=== PATIENT | male | born 1940 | race Caucasian/White ===

== ENCOUNTER 2020-06-23 18:20 | Emergency (ER) | payer MEDICARE ==
[~2020-06-23] VITALS: Ht 172.7 cm; Wt 80.5 kg
[~2020-06-23 18:20] MED LIST: ASPI-1264 PO; CARV12.5 PO; CHOL10002 PO; CLOP75TA15 PO; FURO-149 PO; LOSA50TA64 PO; MULT-1179 PO; NITR0.4T51 SL; OMEG500C PO; OSC500T PO; POTA20LI5 PO; SIMV40TA PO
[2020-06-23 19:19] VITALS: BP 167/76
--- NOTE | 2020-06-23 22:02 | NUR ---
ELIAS [phone]. [facility]
== END 2020-06-23 22:18 | disposition home or self-care (01) ==
LOC: ER 18:20
DX: M65.28 Calcific tendinitis, other site (principal); M25.512 Pain in left shoulder; I25.10 Atherosclerotic heart disease of native coronary artery without angina pectoris; E78.00 Pure hypercholesterolemia, unspecified; I10 Essential (primary) hypertension; I25.2 Old myocardial infarction; Z95.1 Presence of aortocoronary bypass graft; Z79.82 Long term (current) use of aspirin; Z79.899 Other long term (current) drug therapy
CPT/HCPCS: 73030; 99283

== ENCOUNTER 2021-07-29 06:01 | Day surgery (SDC) | payer MEDICARE ==
[2021-07-23 11:43] LABS: BASOPHILS # (AUTO) 0.1 X10'3 (0-0.2); BASOPHILS % (AUTO) 0.7 % (0-1); EOSINOPHILS # (AUTO) 0.3 X10'3 (0-0.9); EOSINOPHILS % (AUTO) 3.5 % (0-6); HEMATOCRIT 40.7 % (42.0-52.0); HEMOGLOBIN 13.6 g/dl (14.0-17.9); LYMPHOCYTES # (AUTO) 1.6 X10'3 (1.1-4.8); MEAN CORPUSCULAR HEMOGLOBIN 29.6 PG (27.0-31.0); MEAN CORPUSCULAR HGB CONC 33.5 g/dL (33.0-36.5); MEAN CORPUSCULAR VOLUME 88.2 FL (78-98); MEAN PLATELET VOLUME 7.2 FL (7.4-10.4); MONOCYTES # (AUTO) 0.8 X10'3 (0-0.9); MONOCYTES % (AUTO) 10.6 % (2-12); NEUTROPHILS % (AUTO) 64.2 % (42-75); PLATELET COUNT 183 X10'3 (140-440); RED BLOOD COUNT 4.61 X10'6 (4.70-6.10); RED CELL DISTRIBUTION WIDTH 13.7 % (11.5-14.5); WHITE BLOOD COUNT 7.7 X10'3 (4.5-11.0)
[2021-07-23 11:50] LABS: ALBUMIN 3.5 G/DL (3.4-5.0); ANION GAP 9 (8-16); BLOOD UREA NITROGEN 23 MG/DL (7-18); BUN/CREATININE RATIO 19.8 (5.4-32.0); CHLORIDE 104 MMOL/L (99-107); CREATININE 1.16 MG/DL (0.60-1.10); GLUCOSE 91 MG/DL (70-104); POTASSIUM 4.5 MMOL/L (3.5-5.1); SODIUM 141 MMOL/L (135-145); TOTAL CARBON DIOXIDE 28.3 MMOL/L (24-32); eGFR 61 ML/MIN
[2021-07-23 11:51] LABS: APTT 28 SECONDS (22-32)
[~2021-07-29] VITALS: Ht 172.7 cm; Wt 74.0 kg
[2021-07-29] VITALS (10 sets, daily range): BP systolic 111–153; BP diastolic 46–86
[2021-07-29] MEDS ORDERED: LORazepam 0.5 MG tablet PO PRN (06:20)
[2021-07-29] MEDS ORDERED: LIDOcaine/PRILOcaine 5gm cream TP ONE (06:20)
[2021-07-29] MEDS ORDERED: diphenhydrAMINE 25mg capsule PO PRN (06:20)
[2021-07-29] MEDS ORDERED: normal saline 1,000 ML IV SCH (06:20)
[2021-07-29] MEDS ORDERED: FURO20TA4 PO (06:46)
[2021-07-29] MEDS ORDERED: POTA10CA44 PO (06:46)
[2021-07-29] MEDS ORDERED: ROSU40TA22 PO (06:46)
[2021-07-29] MEDS ORDERED: THIA250T9 (06:52)
[2021-07-29] MEDS ORDERED: CALC-801 PO (06:52)
[2021-07-29] MEDS ORDERED: LOSA100T57 PO (06:52)
[2021-07-29] MEDS ORDERED: FISH1CAP15 PO (06:52)
[2021-07-29] MEDS ORDERED: VIT1CAPS46 PO (06:52)
[2021-07-29] MEDS ORDERED: nitroGLYCERIN-Tridil 50MG/D5W 250 ML IV ONE (07:25)
[2021-07-29] MEDS ORDERED: fentaNYL/PF 50MCG/1 ML 2ML syringe ONE (07:26)
[2021-07-29] MEDS ORDERED: heparin 1,000unit/ml 10ml vial 10 ML ONE (07:26)
[2021-07-29] MEDS ORDERED: verapamil 2.5 mg/ml inj IV ONE (07:26)
[2021-07-29] MEDS ORDERED: LIDOcaine 1% (10mg/ml)w/preservative injection 20ml MDV ONE (07:26)
[2021-07-29] MEDS ORDERED: iohexol 350MG/ML 100ml bottle IV ONE ×2 (07:26→08:33)
[2021-07-29] MEDS ORDERED: iohexol 350 MG/ML 50ML vial IV ONE (07:26)
[2021-07-29] MEDS ORDERED: midazolam 1 mg/ML 2ml injection ONE (07:26)
[2021-07-29 07:43] LABS: ALANINE AMINOTRANSFERASE 28 U/L (12-78); ALBUMIN 3.8 G/DL (3.4-5.0); ALBUMIN/GLOBULIN RATIO 1.2 (1.1-1.5); ALKALINE PHOSPHATASE 72 IU/L (46-116); ANION GAP 11 (8-16); ASPARTATE AMINO TRANSFERASE 27 U/L (10-37); BILIRUBIN,TOTAL 0.4 MG/DL (0.1-1.0); BLOOD UREA NITROGEN 21 MG/DL (7-18); BUN/CREATININE RATIO 17.2 (5.4-32.0); CALCIUM 8.9 MG/DL (8.5-10.1); CHLORIDE 103 MMOL/L (99-107); CREATININE 1.22 MG/DL (0.60-1.10); GLUCOSE 113 MG/DL (70-104); POTASSIUM 4.7 MMOL/L (3.5-5.1); SODIUM 140 MMOL/L (135-145); TOTAL CARBON DIOXIDE 25.8 MMOL/L (24-32); TOTAL PROTEIN 7.1 G/DL (6.4-8.2); eGFR 57 ML/MIN
[2021-07-29] MEDS ORDERED: acetylcysteine 200 MG/ml 4ml vial PO PRN (09:18)
[2021-07-29] MEDS ORDERED: sodium bicarbonate (8.4%) inj. 150 ML in dextrose 5%-water 1,000 ML IV ONE (09:20)
== END 2021-07-29 13:55 | disposition home or self-care (01) ==
LOC: SSTAY O 06:01
PROVIDERS: ATTEND Internal Medicine Cardiovascular Disease
DX: R94.39 Abnormal result of other cardiovascular function study (principal); T82.855A Stenosis of coronary artery stent, initial encounter; I25.810 Atherosclerosis of coronary artery bypass graft(s) without angina pectoris; I25.82 Chronic total occlusion of coronary artery; I10 Essential (primary) hypertension; I34.0 Nonrheumatic mitral (valve) insufficiency; J44.9 Chronic obstructive pulmonary disease, unspecified; E78.49 Other hyperlipidemia; I65.21 Occlusion and stenosis of right carotid artery; E66.9 Obesity, unspecified; Z95.1 Presence of aortocoronary bypass graft; Z68.29 Body mass index [BMI] 29.0-29.9, adult; Z79.82 Long term (current) use of aspirin; Z79.899 Other long term (current) drug therapy; Z98.890 Other specified postprocedural states; Z98.41 Cataract extraction status, right eye; Z98.42 Cataract extraction status, left eye; Z85.46 Personal history of malignant neoplasm of prostate; Z87.891 Personal history of nicotine dependence; Z82.49 Family history of ischemic heart disease and other diseases of the circulatory system; Y83.8 Other surgical procedures as the cause of abnormal reaction of the patient, or of later complication, without mention of misadventure at the time of the procedure; Y92.89 Other specified places as the place of occurrence of the external cause
CPT/HCPCS: 36415; 76937; 80048; 80053; 85025; 85610; 85730; 93005; 93459; 99152; 99153; C1769; C1894; J1644; J2250; J3010; J3490; J7030; J7070; Q0163; Q9967; A4620; A5120; A6258

== ENCOUNTER 2023-10-06 12:45 | Emergency (ER) | payer MEDICARE ==
[~2023-10-06] VITALS: Ht 171.4 cm; Wt 75.8 kg
[~2023-10-06 12:45] MED LIST changes: +CALC-801 PO; +FISH1CAP15 PO; -FURO-149 PO; +FURO20TA4 PO; +LOSA100T58 PO; -LOSA50TA64 PO; -OMEG500C PO; -OSC500T PO; +POTA10CA85 PO; -POTA20LI5 PO; +ROSU40TA22 PO; -SIMV40TA PO; +THIA250T9; +VIT1CAPS46 PO
[2023-10-06] MEDS: LIDOcaine/epinephrine/tetracaine TOPICAL sol 3 ML syringe TOP ONE (15:32)
[2023-10-06 16:09] LABS: BASOPHILS # (AUTO) 0.1 X10'3 (0-0.2); BASOPHILS % (AUTO) 0.5 % (0-1); EOSINOPHILS # (AUTO) 0.2 X10'3 (0-0.9); EOSINOPHILS % (AUTO) 1.4 % (0-6); HEMATOCRIT 39.3 % (42.0-52.0); HEMOGLOBIN 12.8 g/dl (14.0-17.9); LYMPHOCYTES # (AUTO) 1.7 X10'3 (1.1-4.8); MEAN CORPUSCULAR HEMOGLOBIN 28.6 PG (27.0-31.0); MEAN CORPUSCULAR HGB CONC 32.6 g/dL (33.0-36.5); MEAN CORPUSCULAR VOLUME 87.8 FL (78-98); MEAN PLATELET VOLUME 7.2 FL (7.4-10.4); MONOCYTES % (AUTO) 7.6 % (2-12); NEUTROPHILS # (AUTO) 9.9 X10'3 (1.8-7.7); NEUTROPHILS % (AUTO) 77.5 % (42-75); PLATELET COUNT 160 X10'3 (140-440); RED BLOOD COUNT 4.48 X10'6 (4.70-6.10); RED CELL DISTRIBUTION WIDTH 14.5 % (11.5-14.5); WHITE BLOOD COUNT 12.7 X10'3 (4.5-11.0)
[2023-10-06 16:17] LABS: INR 1.1 INR; PROTHROMBIN TIME 11.4 SECONDS (9.0-12.0)
[2023-10-06 16:27] LABS: ALANINE AMINOTRANSFERASE 25 U/L (12-78); ALBUMIN 3.3 G/DL (3.4-5.0); ALBUMIN/GLOBULIN RATIO 0.9 (1.1-1.5); ALKALINE PHOSPHATASE 59 IU/L (46-116); ANION GAP 5 (8-16); ASPARTATE AMINO TRANSFERASE 21 U/L (10-37); BILIRUBIN,TOTAL 0.6 MG/DL (0.1-1.0); BLOOD UREA NITROGEN 28 MG/DL (7-18); CALCIUM 8.8 MG/DL (8.5-10.1); CHLORIDE 105 MMOL/L (99-107); CREATININE 1.47 MG/DL (0.60-1.10); GLUCOSE 92 MG/DL (70-104); POTASSIUM 4.6 MMOL/L (3.5-5.1); SODIUM 140 MMOL/L (135-145); TOTAL CARBON DIOXIDE 29.9 MMOL/L (24-32); TOTAL PROTEIN 6.8 G/DL (6.4-8.2); eCRCL 37 ML/MIN; eGFR 46 ML/MIN
[2023-10-06 17:02] VITALS: BP 160/88; PULSE 78; RESP 18; TEMP 98.6; O2SAT 97
== END 2023-10-06 16:58 | disposition home or self-care (01) ==
LOC: ER 12:45
DX: S02.2XXA Fracture of nasal bones, initial encounter for closed fracture (principal); S01.81XA Laceration without foreign body of other part of head, initial encounter; S80.02XA Contusion of left knee, initial encounter; S09.90XA Unspecified injury of head, initial encounter; I25.10 Atherosclerotic heart disease of native coronary artery without angina pectoris; E78.00 Pure hypercholesterolemia, unspecified; I10 Essential (primary) hypertension; I25.2 Old myocardial infarction; W01.0XXA Fall on same level from slipping, tripping and stumbling without subsequent striking against object, initial encounter; Y93.89 Activity, other specified; Y92.481 Parking lot as the place of occurrence of the external cause; Y99.8 Other external cause status
CPT/HCPCS: 12011; 36415; 70450; 70486; 72125; 73564; 80053; 85025; 85610; 99285; J3490